=== PATIENT | female | born 1960 | race Caucasian/White ===

== ENCOUNTER → 2016-09-03 | Outpatient (CLI) | payer BC ==
[~2016-09-03] MED LIST: ALBUAER19 INH; LISI-787 PO; LSN/2025 PO; PRLSR20 PO; [UNRECOGNIZED DRUG - OTHER]
--- NOTE | 2016-09-03 07:55 | DIAGNOSTIC IMAGING REPORT ---
THYROID ULTRASOUND HISTORY: Thyroid enlargement R NON TOXIC SINGLE THYROID/PARATHYROID COMPARISON: None. FINDINGS: Right lobe: Maximum dimension 4.9 cm. 2 nodules are present. Mid pole nodule measures 2.3 x 1.5 cm. The lower pole measures 2.0 x 1.0 cm. Left lobe: measures maximum dimension of 3.5 cm. There is a 1.3 x 0.9 cm mid to lower pole left thyroid nodule with partial isthmus involvement. Isthmus: Multinodular thyroid IMPRESSION: Normal thyroid ultrasound. Electronically signed by: Srinath Rodrigues M.D. 09/03/2016 7:54 AM Dictated Date/Time: 09/03/2016 7:52 AM
== END | disposition home or self-care (01) ==
LOC: C.ULTR 07:03
PROVIDERS: ATTEND Family Medicine
DX: E04.2 Nontoxic multinodular goiter (principal)

== ENCOUNTER 2018-07-19 04:53 | Inpatient (IN) ==
--- NOTE | 2018-06-29 13:31 | Anesthesiology Consultation ---
Date of Service June 29, 2018 Assessment & Plan (1) Encounter for pre-operative examination: Plan: PCP clearance 06/26/2018: "I think she is a suitable candidate for total knee arthroplasty... She may proceed with the surgery... She is at a very low risk for any cardiovascular complications." Chart Review Chart Review: Acceptable Risk for Surgery and Patient seen in Pre Admission Testing Teaching & Discussion Instructed NPO after midnight before surgery, except medications with 15 cc of water. Medication instructions provided according to the PAT guidelines. History Surgery Operation Date: 07/19/18 08:50 Proposed Procedures p Left Total Knee Arthroplasty - Keo Casanova MD Height/Weight Height: 5 ft 4 in Weight: 113.8 kg Allergies Allergy/AdvReac Type Severity Reaction Status Date / Time metformin AdvReac Intermediate Diarrhea Verified 06/23/18 11:31 Medications Home Medications Medication Instructions Recorded Confirmed Last Taken albuterol sulfate 2 inh INHALATION QID PRN 06/23/18 06/23/18 Unknown ascorbic acid (vitamin C) [Vitamin 500 mg PO QAM 06/23/18 06/23/18 Unknown C] cholecalciferol (vitamin D3) 2,000 unit PO QAM 06/23/18 06/23/18 Unknown [Vitamin D3] lisinopril-hydrochlorothiazide 1 tab PO QAM 06/23/18 06/23/18 Unknown omeprazole 20 mg PO QAM 06/23/18 06/23/18 Unknown Past Medical History Medical History Anemia HX OF Aortic regurgitation Mild per 2016 echo GERD (gastroesophageal reflux disease) Hiatal hernia Hypertension Morbid obesity Osteoarthritis Reactive airway disease With cold air. Has albuterol inhaler, has not used x 2 years Thyroid nodule UNDER OBSERVATION-SEEMS TO BE SHRINKING Past Surgical History Surgical History History of arthroscopy R/L KNEES History of herniorrhaphy UMBILICAL/ABD LYMPH NODE BX-BENIGN History of tonsillectomy Past Anesthesia History No Hx of Anesthesia Complications and No Family Hx of Anesthesia Complications Knee scopes [facility] [place], no issues per records. History of PONV No Motion Sickness Screening History of Motion Sickness: No Social History Smoking Status: Never smoker Do You Dip or Chew Tobacco: No Hx Alcohol Use: Yes Alcohol type: beer, wine and hard liquor alcohol intake frequency: a few times a week Hx Substance Use: No substance use type: does not use Exercise / Class Metabolic Activity II 4-5 Yardwork/Stairs/Walk up hill (no CP or SOB with stairs) Review of Systems Pt denies any recent chest pain, shortness of breath, palpitations, cough, fever or URI. Physical Exam Vital Signs BP: 124/81 P: 94bpm SPO2: 97% RA T: 98.4 F R: 16 ENMT Mouth: + dental bridge (2) and + dental restorations (few crowns); no chipped teeth and no loose teeth Thyromental Distance: < 3.5 Finger Breadths (3) Mallampati Class: I Neck + short neck; neck extension not limited Respiratory normal respiratory effort Auscultation: lungs clear to auscultation bilaterally Cardiovascular Rate/Rhythm: regular rate and regular rhythm Heart Sounds: no murmur Vessels: no carotid bruit Extremities: no edema Testing Electrocardiogram Date: 06/29/18 Findings: + NSR @ (88) Chest X-Ray Date: 06/29/18 1. No active disease in the chest. 2. Prominent right paratracheal density has not significantly changed dating back to 2012. Laboratory Results 06/29/18 14:03 06/29/18 14:03 Blood Type A Positive 06/29/18 14:03 Antibody Screen NEGATIVE 06/29/18 14:03 PT 9.9 Seconds (9.0-12.0) 06/29/18 14:03 INR 1.0 (0.9-1.1) 06/29/18 14:03 APTT 25.4 Seconds (21.0-31.0) 06/29/18 14:03 Urine Color Yellow 06/29/18 Unknown Urine Appearance Cloudy (Clear) H 06/29/18 Unknown Urine pH 5.0 (4.5-7.5) 06/29/18 Unknown Ur Specific [place] 1.014 (1.000-1.030) 06/29/18 Unknown Urine Protein Negative (Negative) 06/29/18 Unknown Urine Glucose (UA) Negative (Negative) 06/29/18 Unknown Urine Ketones Negative (Negative) 06/29/18 Unknown Urine Nitrite Negative (Negative) 06/29/18 Unknown Ur Leukocyte Esterase Negative (Negative) 06/29/18 Unknown Urine WBC (Auto) 5-10 /hpf (0-5) H 06/29/18 Unknown Urine RBC (Auto) 0-4 /hpf (0-4) 06/29/18 Unknown U Hyaline Cast (Auto) 1-5 /lpf (0-5) 06/29/18 Unknown U Epithel Cells (Auto) >30 /lpf (0-5) H 06/29/18 Unknown Urine Bacteria (Auto) 1+ (Negative) H 06/29/18 Unknown
--- NOTE | 2018-06-29 13:33 | PAT Medication Instructions ---
Medication Instructions Date of Service June 29, 2018 Home Medications albuterol sulfate 2 inh INHALATION QID PRN ascorbic acid (vitamin C) 500 mg PO QAM cholecalciferol (vitamin D3) 2,000 unit PO QAM lisinopril-hydrochlorothiazide 1 tab PO QAM omeprazole 20 mg PO QAM DO NOT take the morning of surgery ascorbic acid (vitamin C) 500 mg PO QAM cholecalciferol (vitamin D3) 2,000 unit PO QAM lisinopril-hydrochlorothiazide 1 tab PO QAM Take morning of surgery With a small sip of water, OTHERWISE NOTHING TO EAT OR DRINK AFTER MIDNIGHT: albuterol sulfate 2 inh INHALATION QID PRN (if needed, and bring it with you into the hospital) omeprazole 20 mg PO QAM Take evening before surgery albuterol sulfate 2 inh INHALATION QID PRN (if needed) Other Notes If you have any questions please call us at [phone] or [phone] or [phone] or [phone]
--- NOTE | 2018-06-29 14:36 | XRay Report ---
TWO VIEW CHEST CLINICAL HISTORY: Preoperative examination. FINDINGS: PA and lateral chest radiographs are compared to study dated 11/05/2015 and 04/09/2013. The ca rdiomediastinal silhouette is unremarkable. Prominent right paratracheal density has not significantl y changed dating back to 2012. The lungs and pleural spaces are clear. There is no pneumothorax. The skeletal structures are osteopenic. Degenerative change and scoliosis are noted in the thoracic spine . The bony thorax appears intact. IMPRESSION: 1. No active disease in the chest. 2. Prominent right paratracheal density has not significantly changed dating back to 2012. Electronically signed by: Clemente Albert M.D. 06/29/2018 2:34 PM
[2018-06-29 15:02] LABS: Basophils # (auto) 0.04 K/uL (0-0.2); Basophils % (auto) 0.5 %; Eosinophils # (auto) 0.15 K/uL (0-0.5); Eosinophils % (auto) 1.9 %; Immature Granulocytes # (auto) 0.01 K/uL (0.00-0.02); Immature Granulocytes % (auto) 0.1 %; Lymphocytes # (auto) 3.11 K/uL (1.2-3.4); Lymphocytes % (auto) 38.5 %; Mean Corpuscular Hgb Conc 32.4 g/dL (32-36); Mean Corpuscular Volume 89.8 fL (80-100); Monocytes # (auto) 0.53 K/uL (0.11-0.59); Monocytes % (auto) 6.6 %; Neutrophils # (auto) 4.23 K/uL (1.4-6.5); Neutrophils % (auto) 52.4 %; Platelet Count 310 K/uL (130-400); RDW Standard Deviation 46.3 fL (36.4-46.3); Red Blood Count 4.12 M/uL (4.2-5.4); White Blood Count 8.07 K/uL (4.8-10.8)
[2018-06-29 15:04] LABS: Appearance Urine Cloudy (Clear); Bacteria Urine Automated 1+ (Negative); Bilirubin Urine Negative (Negative); Color Urine Yellow; Epithelial Cell Urine Auto >30 /lpf (0-5); Glucose Urine UA Negative (Negative); Ketones Urine Negative (Negative); Leukocyte Esterase Urine Negative (Negative); Nitrite Urine Negative (Negative); Protein Urine Negative (Negative); Specific Gravity Urine 1.014 (1.000-1.030); Urobilinogen Urine Negative (Negative)
[2018-06-29 15:11] LABS: Partial Thromboplastin Time 25.4 Seconds (21.0-31.0); Prothrombin Time 9.9 Seconds (9.0-12.0)
[2018-06-29 15:13] LABS: BUN Creatinine Ratio 21.3 (10-20); Calcium 9.6 mg/dl (8.5-10.1); Creatinine Clr Calc Pharmacy 72.9 ml/min; Est GFR (African American) 68.6; Est GFR (Non-African American) 59.2; Potassium 4.2 mmol/L (3.5-5.1)
--- NOTE | 2018-07-03 18:27 | History and Physical Report ---
DATE OF ADMISSION: 07/19/2018 CHIEF COMPLAINT: Left knee pain. HISTORY OF PRESENT ILLNESS: This 58-year-old white female presents to the office with complaints of left knee pain that has been longstanding. She has been receiving viscosupplementation injections as well as using oral NSAIDs and oral Tylenol without lasting improvement. She elects to proceed with total knee arthroplasty in hopes of alleviating her pain. Pain is worse with weightbearing. It is affecting her ADLs. She denies any numbness or tingling. No acute injury. She is no longer able to walk or bike for exercise. Preoperative imaging has been obtained. PAST MEDICAL HISTORY: Significant for obesity, hypertension, history of asthma, GERD, hiatal hernia, osteoarthritis, history of gallstones, and nonalcoholic fatty liver disease. PREVIOUS SURGERIES: Tonsillectomy with adenoidectomy, knee arthroscopy x2, lymph node biopsy, umbilical hernia repair. FAMILY HISTORY: Significant for non-Hodgkin's lymphoma in her mother. Father is living with hypertension. One sister also of Hodgkin's lymphoma. Two half-sisters and 2 half-brothers alive and well. SOCIAL HISTORY: The patient is employed. . No tobacco use, occasional ETOH use. ALLERGIES: KNOWN ALLERGY TO METFORMIN. NSAIDS CAUSE HEARTBURN. CURRENT MEDICATIONS: Advil 200 mg 3 tablets p.o. q. 8 hours p.r.n., hydrochlorothiazide/lisinopril 12.5 mg/20 mg p.o. daily, Prilosec OTC 20 mg p.o. daily, Tylenol 2 tablets p.o. q. 8 hours p.r.n., vitamin C daily, Vitamin D3 daily. REVIEW OF SYSTEMS: A total of 10 systems were reviewed with the patient and her significant only for above-stated conditions. PHYSICAL EXAMINATION: GENERAL: Well-developed, well-nourished, obese middle aged white female in no acute distress. Sitting in a chair. Alert and oriented. SKIN: Warm and dry with good turgor. No rashes or lesions. No ecchymosis or erythema. HEENT: Normocephalic, atraumatic. Eyes PERRLA, EOMI. Nares patent bilaterally without turbinate enlargement. Oropharynx without erythema or exudate. No lesions noted. Uvula midline. Oral mucosa moist. Fair dentition. Fillings and bridges are noted. HEART: RRR. No MGR. LUNGS: Clear to auscultation bilaterally. No crackles, rhonchi, or wheezing. Good air movement. ABDOMEN: Bowel sounds present x4, obese, soft, nontender. No organomegaly. No masses. MUSCULOSKELETAL: Left knee evaluation reveals no intraarticular effusion. She does get swelling at times. No venous stasis changes. Full terminal extension. Flexion to around 90 degrees. Some of this is limited by body habitus. She has focal discomfort with palpation over the medial joint line. There is also some peripatellar discomfort today. No lateral joint line discomfort with palpation. Stable collateral ligaments. No defect in the patellar tendon or quadriceps tendon. Strength is 5/5 with fair quad tone. Ambulatory with a slightly antalgic gait. NEUROLOGIC: Gross sensation is intact across both lower extremities by soft touch. Peripheral pulses are 2+. DATA: Radiographic imaging previously obtained shows end-stage DJD of the left knee with medial compartment disease and varus alignment. There is also patellofemoral disease. Periarticular osteophytes and subchondral sclerosis are present. IMPRESSION: Left knee end-stage degenerative joint disease. PLAN: Postoperative prescriptions for Percocet and Coumadin will be provided at discharge from the hospital. Anticipate discharge to home with outpatient services or home health services. She already has a walker. Physical therapy has already been established for 2 weeks postop. Preoperative lab work, EKG, and chest x-ray have been ordered. She already has obtained medical clearance from her PCP, Dr. Bernardino Ch.
[2018-07-19] MEDS ORDERED: TRANEXAMIC ACID 1,000 MG **IV Pre-op IV SCH (06:00)
[2018-07-19] MEDS ORDERED: CEFAZOLIN 3000MG 65 ML IV SCH (06:00)
[2018-07-19] MEDS ORDERED: ROPIVACAINE 0.5% HCL/PF 150 MG, BUPIVACAINE 0.5% MPF 30 ML, EPINEPHrine 0.15 MG, Ketoro... INFIL SCH (06:00)
[2018-07-19] MEDS ORDERED: LR 500ML BOLUS, THEN 15ML/HR IV SCH (06:00)
[2018-07-19] MEDS ORDERED: LR 60ML/HR IV SCH (06:00)
[2018-07-19] MEDS ORDERED: BUPIVACAINE 0.5 % 5 MG/1 ML PF 10ML VIAL ONE (06:14)
[2018-07-19] MEDS ORDERED: ROPIVACAINE 0.5% 5 MG/ML 30 ML VIAL ONE (06:14)
[2018-07-19] MEDS ORDERED: fentaNYL citrate 100 MCG/2 ML VIAL ONE (06:23)
[2018-07-19] MEDS ORDERED: MIDAZOLAM HCL 1 MG/ML 2ML VIAL ONE (06:23)
[2018-07-19] MEDS ORDERED: PROPOFOL IV EMULSION 10 MG/ML 20 ML VIAL IV ONE (06:24)
[2018-07-19] MEDS ORDERED: POVIDONE-IODINE OP SOLN 30 ML BTL ONE (06:27)
[2018-07-19] MEDS ORDERED: ONDANSETRON INJ 2 MG/ML 2 ML VIAL ONE (06:27)
[2018-07-19] MEDS ORDERED: LIDOCAINE HCL 2% 2 ML VIAL/AMP(20MG/ML) INFIL ONE (06:27)
[2018-07-19] MEDS ORDERED: ORTHO JOINT ANESTHETIC ONE (06:27)
--- NOTE | 2018-07-19 06:31 | History & Physical Bridge Note ---
Date of Service July 19, 2018 History & Physical Bridge Note I have examined the patient, reviewed the History & Physical and in the interval since the performance of the History & Physical I have noted the following changes of clinical significance:consent obtained. no changes noted
[2018-07-19] MEDS ORDERED: HYDROmorphone INJ 1 MG/ML SYRINGE IV PRN (06:41)
[2018-07-19] MEDS ORDERED: ePHEDrine sulfate 50 MG/ML AMP IV PRN (06:41)
[2018-07-19] MEDS ORDERED: KETOROLAC 30 MG/ML VIAL IV PRN ×2 (06:41→10:26)
[2018-07-19] MEDS ORDERED: PHENYLEPHRINE 100MCG/ML 5ML SYR IV PRN (06:41)
[2018-07-19] MEDS ORDERED: ATROPINE SULFATE 0.1 MG/ML 10ML SYR IV PRN (06:41)
[2018-07-19] MEDS ORDERED: ONDANSETRON INJ 2 MG/ML 2 ML VIAL IV PRN ×2 (06:41→10:26)
[2018-07-19] MEDS ORDERED: PHENYLEPHRINE HCL 10 MG/ML VIAL ONE (08:17)
--- NOTE | 2018-07-19 08:33 | Post Operative Brief Note ---
Immediate Post Op Note v1 Date of Surgery July 19, 2018 Pre & Post Diagnosis Operation Date: 07/19/18 07:00 Pre-Op Diagnosis: Left Knee Degenerative Joint Disease Post-Op Diagnosis: Left Knee Degenerative Joint Disease Procedure Operation Date: 07/19/18 07:00 Actual Procedures p Left Total Knee Arthroplasty, Cemented(Left) - Keo Casanova MD Surgeon Keo Casanova MD Planning Management It Special[facility] Estimated Blood Loss 25 Findings Consistent with Post-Op Diagnosis
--- NOTE | 2018-07-19 08:49 | Operative Report ---
Post Operative Report Pre & Post Diagnosis Operation Date: 07/19/18 07:00 Pre-Op Diagnosis: Left Knee Degenerative Joint Disease Post-Op Diagnosis: Left Knee Degenerative Joint Disease Procedure Operation Date: 07/19/18 07:00 Actual Procedures p Left Total Knee Arthroplasty, Cemented(Left) - Keo Casanova MD Surgeon FABI Casanova MD Copy Lathe Operator eduarda Estimated Blood Loss 25 Findings Consistent with Post-Op Diagnosis Specimens see operative report Drains none Complications none Disposition Accompanied Patient To Recovery: Yes Disposition: Recovery Room Indications This 58-year-old white female presented to the office with complaints of bilateral knee pain, left greater than right. She had tried conservative care measures including activity modification, oral anti-inflammatories, oral pain medication, and Viscosupplementation injections, without lasting relief. Pain was affecting her ADLs. She elected to proceed with surgical intervention after being educated about potential risks and outcomes. Preoperative imaging was obtained. Description of Procedure Patient was administered a spinal anesthetic and then taken to the operating room where she was given sedation. She was prepped and draped in the usual sterile fashion. Please see Dr. Casanova's operative report for specifics of the procedure. I was present for the entire case from initial patient positioning through final wound closure. Assistance was provided in tissue retraction, hemostasis, trial implant placement, final implant placement, and final wound closure. Patient was taken to the recovery room in satisfactory condition. I attest to the content of the Intraoperative Record and any orders documented therein. Any exceptions are noted below.
--- NOTE | 2018-07-19 09:02 | XRay Report ---
TWO VIEWS LEFT KNEE CLINICAL HISTORY: Postoperative examination. FINDINGS: AP and crosstable lateral portable views of the left knee are obtained. A left knee arthrop lasty is in near anatomic alignment. There has been undersurface remodeling of the patella. No acute fracture is seen. There are expected postoperative changes around the knee including skin clips, soft tissue edema, and subcutaneous gas. IMPRESSION: Expected postoperative changes status post left knee arthroplasty. No acute fracture is s een. Electronically signed by: Clemente Albert M.D. 07/19/2018 9:00 AM
--- NOTE | 2018-07-19 09:04 | Operative Report ---
DATE OF OPERATION: 07/19/2018 SURGEON: Dr. Casanova. BUSINESS APPLICATIONS DEVELOPER: Dr. Clemente. No resident or fellow available. PREOPERATIVE DIAGNOSES: Osteoarthritis with varus flexion deformity, left knee. POSTOPERATIVE DIAGNOSES: Osteoarthritis with varus flexion deformity, left knee. OPERATION PERFORMED: Cemented left total knee replacement. PERIOPERATIVE SITUATION: Medically cleared female with intractable knee pain, has relatively high BMI, but is cleared for surgery. Risks and consequences noted in the consent. She understands. DESCRIPTION OF PROCEDURE: The patient appropriately identified, site verified, consent verified. Antibiotics confirmed as being given. The left lower extremity was prepped and draped in usual routine fashion. The leg was then exsanguinated with rubber Esmarch bandage and tourniquet inflated to 300 mmHg for a total of 48 minutes. Midline exposure was utilized. Lengths based on size. Full thickness flaps raised. Parapatellar arthrotomy performed. Synovectomy completed. Large amount of osteophytes noted. The distal femur was then entered. The distal femur was then resected 14 mm after the cruciates were released. The tibia was then subluxated. Remaining menisci excised and the tibia resected 4 mm, the extension gap was excellent. The femur was then sized between 5 and 4, was measured 5 cut 4. There was no notching. Once the condylar and chamfer cuts made, the flexion gap was checked. It was excellent. The posterior capsule was then injected with 2 syringes full of the Orthomix. The box cut was then made and the trial fit well. Tibia was then subluxated and then broached and reamed to a size 3. The size 4 had a little bit of overhang and did not want to have any kind of soft tissue irritation, so we sized down. The size 4 trial with a 10 mm spacer revealed excellent stability in full extension, full flexion and mid range flexion. The patella was then sized to a 41, resection was made leaving 15 mm. Seating holes made. The trial tracked well. The wound was then all injected with the Orthomix and all the trial implants were removed. The wound irrigated with Betadine and Pulsavac and then the permanent cemented into position. After 12 minutes, the tourniquet deflated. Minor bleeding occurred. A 25 mL blood loss estimated. After 14 minutes, the knee was flexed. One minor small area of cement removal posteromedially. The wound was irrigated with Betadine and Pulsavac and then closed. After the permanent liner was seated, the knee reduced and the knee tracked well. This was closed with #2 Vicryl for the capsule layer, 2-0 Vicryl for subcutaneous layer and stainless steel clips for skin. Appropriate dressing applied and the patient transferred to the Recovery Room in satisfactory condition having tolerated the procedure well. SUMMARY OF IMPLANTS: Size 4 posterior cruciate substituting femur, size 3 tibial tray, size 4 spacer matching the femur posterior cruciate substituting 10 mm thick, oval dome 3 peg patella size 41. So 4 femur, 3 tibia, 41 patella and size four 10 mm thick tibial insert matching the femur posterior cruciate stabilized. Two bags of Palacos G cement. EBL 25 mL. Pathology pending on bone. DVT prophylaxis with Coumadin. I attest to the content of the Intraoperative Record and any orders documented therein. Any exception s are noted below.
--- NOTE | 2018-07-19 09:55 | Anesthesiology Progress Note ---
Date of Service July 19, 2018 Anesthesia Post Procedure Vital Signs Vital Signs: Temp Pulse Pulse Resp BP Pulse Ox 07/19/18 09:45 65 13 107/63 94 07/19/18 09:30 58 L 14 117/64 97 07/19/18 09:20 36.4 C L 70 17 120/75 97 07/19/18 09:10 66 14 122/67 97 07/19/18 09:00 70 17 110/72 96 07/19/18 08:50 65 13 125/59 L 97 07/19/18 08:40 36.9 C 78 18 111/66 97 07/19/18 05:25 36.9 C 75 18 140/90 98 Pain Intensity Left Knee: Pain Intensity: 0 Notes Mental Status: alert / awake / arousable Patient Amnestic to Procedure: Yes Nausea / Vomiting: adequately controlled Pain: adequately controlled Airway Patency, RR, SpO2: stable & adequate BP & HR: stable & adequate Hydration State: stable & adequate Neuraxial Anesthesia: was administered and sensory block is resolving Anesthetic Complications: no major complications apparent
[2018-07-19] MEDS ORDERED: DiphenhydrAMINE HCL 50 MG/ML VIAL IV PRN (10:26)
[2018-07-19] MEDS ORDERED: BISACODYL 10 MG SUPP PR PRN (10:26)
[2018-07-19] MEDS ORDERED: ALBUTEROL HFA 8 GM INHALER INH PRN (10:26)
[2018-07-19] MEDS ORDERED: ALUMINUM/MAGNESIUM SUSP 30 ML UDC PO PRN (10:26)
[2018-07-19] MEDS ORDERED: MAGNESIUM HYDROXIDE SUSP 30 ML UDC PO PRN (10:26)
[2018-07-19] MEDS ORDERED: HYDROmorphone INJ 0.5 MG/0.5 ML SYR IV PRN (10:26)
[2018-07-19] MEDS ORDERED: METOCLOPRAMIDE HCL INJ 5 MG/ML 2 ML VIAL IV PRN (10:26)
[2018-07-19] MEDS ORDERED: NALOXONE HCL 0.4 MG/1 ML VIAL/CARP IV PRN (10:26)
[2018-07-19] MEDS ORDERED: SODIUM CHLORIDE 0.9% 1000ML 1,000 ML IV SCH (11:00)
[2018-07-19] MEDS: LISINOPRIL/HCTZ 20/12.5MG 1 TAB TAB PO SCH (13:04)
[2018-07-19] MEDS: MULTIVITAMIN TAB PO SCH (13:04)
[2018-07-19] MEDS: PANTOprazole 40 MG TAB PO SCH (13:04)
[2018-07-19] MEDS: DOCUSATE SODIUM 100 MG CAP PO SCH ×2 (13:05→20:19)
[2018-07-19] MEDS: ACETAMINOPHEN 500 MG TAB PO SCH ×2 (13:05→21:14)
[2018-07-19] MEDS ORDERED: ORTHO WARFARIN NOMOGRAM SCH (14:00)
[2018-07-19] MEDS: CEFAZOLIN 2000MG 2,000 MG/15 ML SYR IV SCH ×2 (14:17→22:29)
--- NOTE | 2018-07-19 14:17 | Progress Note ---
DATE: 07/19/2018 POSTOPERATIVE CHECK PROGRESS NOTE The patient is doing well status post left total knee replacement. She denies shortness of breath, fever, chills, nausea, vomiting or headache. She has been up walking already. Eating, drinking. No nausea or vomiting. Vital signs are stable. She is afebrile. Neurovascular check; femoral sciatic nerve is normal. Wound dressing clean, dry and intact. Postop x-rays look excellent. ASSESSMENT: Doing well, postoperative care pathway for total knee replacement. Discharge tomorrow. Coumadin for deep venous thrombosis prophylaxis.
[2018-07-19] MEDS ORDERED: TRANEXAMIC ACID 1,000 MG in 0.9 % SODIUM CHLORIDE 100 ML IV SCH (14:30)
[2018-07-19] MEDS ORDERED: WARFARIN SOD 5 MG TAB PO ONE (16:00)
[2018-07-19] MEDS: OXYCODONE HCL IR 5 MG TAB (IMMEDIATE RELEASE) PO PRN (18:35)
[2018-07-19] MEDS ORDERED: SENNA 8.6 MG TAB PO SCH (21:00)
[2018-07-20] MEDS: ACETAMINOPHEN 500 MG TAB PO SCH (05:41)
[2018-07-20 06:27] LABS: Hematocrit (blood only) 34.7 % (37-47); Hemoglobin 11.5 g/dL (12.0-16.0); Mean Corpuscular Hgb Conc 33.1 g/dL (32-36); Mean Corpuscular Volume 89.2 fL (80-100); Mean Platelet Volume 10.1 fL (7.4-10.4); Platelet Count 271 K/uL (130-400); RDW Coefficient of Variation 13.8 % (11.5-14.5); RDW Standard Deviation 45.6 fL (36.4-46.3); Red Blood Count 3.89 M/uL (4.2-5.4); White Blood Count 12.96 K/uL (4.8-10.8)
[2018-07-20 06:39] LABS: INR 1.1 (0.9-1.1); Prothrombin Time 11.4 Seconds (9.0-12.0)
[2018-07-20 06:56] LABS: BUN Creatinine Ratio 17.7 (10-20); Calcium 8.7 mg/dl (8.5-10.1); Creatinine Clr Calc Pharmacy 57.8 ml/min; Est GFR (African American) 51.9; Est GFR (Non-African American) 44.8; Potassium 3.7 mmol/L (3.5-5.1)
--- NOTE | 2018-07-20 07:12 | Progress Note ---
DATE: 07/20/2018 SUBJECTIVE: Doing well status post left total knee replacement. The patient has been up ambulatory. She denies chest pain, shortness of breath, fever, chills, nausea, vomiting, or headache. She can do a straight leg raise. OBJECTIVE: Wound dressing clean and dry. Vital signs stable, afebrile. Hematocrit is stable in the 30s. INR is 1.1. ASSESSMENT: Doing well. Discharge today postop day #1 status post left total knee replacement. Discharge on 4 mg Coumadin.
[2018-07-20] MEDS ORDERED: dexAMETHasone 10 MG in SYRINGE 0 ML IV SCH (08:00)
--- NOTE | 2018-07-20 08:07 | Discharge Summary ---
DATE OF POTENTIAL DISCHARGE: 07/20/2018. CHIEF COMPLAINT: Left knee pain. HISTORY OF PRESENT ILLNESS: A 58-year-old female admitted for elective left total knee replacement. Hospital course has been uneventful. PAST MEDICAL HISTORY: Remarkable for obesity, hypertension, asthma, GERD, hiatal hernia, osteoarthritis, gallstones, nonalcoholic fatty liver disease. PAST SURGICAL HISTORY: Previous surgeries include tonsillectomy, adenoidectomy, knee arthroscopies, lymph node biopsy, umbilical hernia repair. FAMILY HISTORY: Remarkable for non-Hodgkin's lymphoma in her mother, father is living with hypertension, one sister also of Hodgkin's lymphoma. Two half-sisters and 2 half-brothers alive and well. SOCIAL HISTORY: Reveals that she is employed. . No tobacco or alcohol use. ALLERGIES: METFORMIN, NSAIDS CAUSE GI DISCOMFORT. PREADMISSION MEDICATIONS: Include Advil, hydrochlorothiazide, lisinopril, Prilosec, Tylenol, vitamin C, vitamin D. She will discontinue the Advil, use Coumadin to keep INR 1.8-2.2 and p.r.n. pain medication, see prescription. REVIEW OF SYSTEMS: Noncontributory. ASSESSMENT: Status post total knee replacement, doing well. Discharge to home tomorrow with home health.
[2018-07-20] MEDS: MULTIVITAMIN TAB PO SCH (09:04)
[2018-07-20] MEDS: LISINOPRIL/HCTZ 20/12.5MG 1 TAB TAB PO SCH (09:05)
[2018-07-20] MEDS: DOCUSATE SODIUM 100 MG CAP PO SCH (09:05)
[2018-07-20] MEDS: PANTOprazole 40 MG TAB PO SCH (09:05)
[2018-07-20] MEDS: OXYCODONE HCL IR 5 MG TAB (IMMEDIATE RELEASE) PO PRN (09:10)
--- NOTE | 2018-07-20 09:30 | Anesthesiology Progress Note ---
Date of Service July 20, 2018 Anesthesia Post Procedure Vital Signs Vital Signs: Temp Pulse Pulse Resp BP Pulse Ox 07/20/18 07:12 36.7 C 54 L 18 108/69 98 07/20/18 04:15 36.5 C 72 14 110/69 98 07/19/18 23:19 36.7 C 60 14 107/64 98 07/19/18 18:57 36.7 C 72 18 104/66 97 07/19/18 14:55 36.7 C 66 18 104/62 97 07/19/18 12:52 77 18 115/69 98 07/19/18 11:56 72 18 130/78 98 07/19/18 11:04 55 L 18 122/77 98 07/19/18 10:36 36.7 C 77 18 125/67 100 07/19/18 10:32 56 L 18 120/77 97 07/19/18 10:00 36.9 C 63 18 125/79 96 07/19/18 09:45 65 13 107/63 94 07/19/18 09:30 58 L 14 117/64 97 Pain Intensity Left Knee: Pain Intensity: 0 Notes Mental Status: alert / awake / arousable Nausea / Vomiting: adequately controlled Pain: adequately controlled Airway Patency, RR, SpO2: stable & adequate BP & HR: stable & adequate Hydration State: stable & adequate Neuraxial Anesthesia: was administered and sensory block resolved Anesthetic Complications: no major complications apparent and Pt Satisfied with anesthetic care
[2018-07-20] MEDS ORDERED: WARFARIN SOD 5 MG TAB PO ONE (10:30)
== END 2018-07-20 12:12 | disposition home health service (06) | DRG 470 ==
LOC: ASU 04:53 → 3E 08:48

== ENCOUNTER 2022-06-30 06:04 | Observation (INO) ==
--- NOTE | 2022-06-14 11:11 | PAT Medication Instructions ---
Medication Instructions Date of Service June 14, 2022 Home Medications albuterol sulfate 90 mcg/actuation breath activated powder inhaler 2 inh inhalation QID PRN Wheezing ascorbic acid (vitamin C) 500 mg chewable tablet (Vitamin C) 500 mg PO QAM cholecalciferol (vitamin D3) 50 mcg (2,000 unit) capsule (Vitamin D3) 2,000 unit PO QAM omeprazole 20 mg tablet,delayed release 10 mg PO QAM hydrochlorothiazide 12.5 mg tablet 25 mg PO QAM ibuprofen 200 mg capsule 400 mg PO QID PRN Pain ASK your surgeon for instructions ibuprofen 200 mg capsule 400 mg PO QID PRN Pain DO NOT take the morning of surgery ascorbic acid (vitamin C) 500 mg chewable tablet (Vitamin C) 500 mg PO QAM cholecalciferol (vitamin D3) 50 mcg (2,000 unit) capsule (Vitamin D3) 2,000 unit PO QAM hydrochlorothiazide 12.5 mg tablet 25 mg PO QAM Take morning of surgery With a small sip of water, OTHERWISE NOTHING TO EAT OR DRINK AFTER MIDNIGHT: albuterol sulfate 90 mcg/actuation breath activated powder inhaler 2 inh inhalation QID PRN Wheezing (use if needed; please bring rescue inhaler with you to hospital day of surgery if possible) omeprazole 20 mg tablet,delayed release 10 mg PO QAM Take evening before surgery albuterol sulfate 90 mcg/actuation breath activated powder inhaler 2 inh inhalation QID PRN Wheezing (if needed) Other Notes If you have any questions please call us at [phone] or [phone] or [phone] or [phone]
--- NOTE | 2022-06-18 10:49 | Anesthesiology Consultation ---
Date of Service June 18, 2022 Assessment & Plan (1) Encounter for pre-operative examination: - COVID screening: Per assessment on 06/18: No known COVID-19 positive contacts or current COVID-19 related symptoms. Travel screen negative. Patient vaccinated. At surgeon discretion if preop Covid testing being done. - S/P Left TKA (07/19/18): SAB at L3-4 (x1 attempt) + PNB at [facility] - Outpatient joint assessment: Pt currently scheduled for inpatient pathway. If surgeon requests review for outpatient joint pathway, patient is an acceptable candidate for outpatient joint program from anesthesia standpoint. - Patient acceptable risk for surgery pending surgeon-ordered PCP preop evaluation (Dr. Ch, appt 06/23). Chart Review Chart Review: Patient seen in Pre Admission Testing Teaching & Discussion Pre-Anesthesia Teaching/Discussion Notes: Instructed NPO after midnight before surgery,except medications with 15 cc of water. Medication instructions provided according to the PAT guidelines. History Surgery Operation Date: 06/30/22 07:00 Proposed Procedures p Right Total Knee Arthroplasty - Keo Casanova MD Height/Weight Height: 5 ft 4 in Weight: 109.2 kg Allergies Allergy/AdvReac Type Severity Reaction Status Date / Time metformin AdvReac Intermediate Diarrhea Verified 06/11/22 13:49 Medications Home Medications Medication Instructions Recorded Confirmed Last Taken albuterol sulfate 90 mcg/actuation 2 inh inhalation QID PRN Wheezing 06/23/18 06/11/22 Unknown breath activated powder inhaler ascorbic acid (vitamin C) 500 mg 500 mg PO QAM 06/23/18 06/11/22 01/27/19 chewable tablet (Vitamin C) cholecalciferol (vitamin D3) 50 2,000 unit PO QAM 06/23/18 06/11/22 01/28/19 mcg (2,000 unit) capsule (Vitamin D3) omeprazole 20 mg tablet,delayed 10 mg PO QAM 06/23/18 06/11/22 01/28/19 release hydrochlorothiazide 12.5 mg tablet 25 mg PO QAM 01/12/19 06/11/22 01/28/19 ibuprofen 200 mg capsule 400 mg PO QID PRN Pain 01/12/19 06/11/22 01/15/19 Past Medical History Medical History GERD (gastroesophageal reflux disease) Controlled Hiatal hernia Hypertension Morbid obesity Osteoarthritis Reactive airway disease Temporomandibular joint disorder Right side clicking, no locking Exercise / Class Metabolic Activity II 4-5 Yardwork/Stairs/Walk up hill Past Family History Family History Other No family history of adverse response to anesthesia Past Surgical History Surgical History History of arthroscopy R/L KNEE History of herniorrhaphy UMBILICAL/ABD LYMPH NODE BX-BENIGN History of tonsillectomy History of total knee replacement Left TKA (07/19/18): SAB at L3-4 (x1 attempt) + PNB at [facility] Past Anesthesia History No Hx of Anesthesia Complications and No Family Hx of Anesthesia Complications History of PONV No Hx of PONV and No Hx of Motion Sickness Social History Smoking Status: Never smoker Do You Dip or Chew Tobacco: No Hx Alcohol Use: Yes Alcohol type: beer, wine and hard liquor alcohol intake frequency: a few times a week Hx Substance Use: No substance use type: does not use Review of Systems Patient denies chest pain, shortness of breath, dyspnea on exertion, fever, chills, cough, wheezing, palpitations. Physical Exam Vital Signs VITALS BP 113/75 P 74 TEMP 98.3 SP02 98%RA RESP 18 PHYSICAL Full cervical extension range of motion. Full TMJ range of motion. TMD 3 finger breaths Mallampati Score 1 Dentition: intact, + bridges (sides/molars) Lungs: clear throughout to auscultation Cardiac: regular rate and rhythm, no murmurs noted Spine: normal Carotid arteries: negative bruit Extremities: no edema Lab Results Anesthesia Preop Results Results Anesthesia Widget: WBC 7.05 K/ul (4.8-10.8) 06/18/22 Hgb 12.0 g/dl (12.0-16.0) 06/18/22 Hct 35.7 % (34.1-44.9) 06/18/22 Plt 303 K/uL (130-400) 06/18/22 Na 140 mmol/L (136-145) 06/18/22 K 3.9 mmol/L (3.5-5.1) 06/18/22 Cl 104 mmol/L (98-107) 06/18/22 CO2 28 mmol/L (21-32) 06/18/22 BUN 27 mg/dl (6-23) H 06/18/22 Creat 1.22 mg/dl (0.6-1.2) H 06/18/22 Glucose Level 99 mg/dl (70-99(Fasting)) 06/18/22 PT 10.3 Seconds (9.0-12.0) 06/18/22 PTT 25.9 Seconds (21.0-31.0) 06/18/22 INR 1.0 (0.9-1.1) 06/18/22 Urine Color Yellow 06/18/22 Urine Appearance Clear (Clear) 06/18/22 Urine pH 5.0 (4.5-7.5) 06/18/22 Urine Specific [place] 1.018 (1.000-1.030) 06/18/22 Urine Protein Negative (Negative) 06/18/22 Urine Glucose (UA) Negative (Negative) 06/18/22 Urine Ketones Negative (Negative) 06/18/22 Urine Blood Negative (Negative) 06/18/22 Urine Nitrite Negative (Negative) 06/18/22 Urine Bilirubin Negative (Negative) 06/18/22 Urine Urobilinogen Negative (Negative) 06/18/22 Urine Leukocyte Esterase Negative (Negative) 06/18/22 Blood Type A Positive 06/18/22 Antibody Screen NEGATIVE 06/18/22 Testing Electrocardiogram Date: 06/18/22 Findings: + NSR @ (69) Chest X-Ray Date: 06/18/22 FINDINGS: PA and lateral chest radiographs are compared to study dated 06/07. The cardiomediastinal silhouette is unremarkable. The lungs and pleural spaces are clear. There is no pneumothorax. The bony thorax appears intact. Degenerative change is noted throughout the thoracic spine. IMPRESSION: No active disease in the chest. COVID-19 Risk Screen Screening Information COVID-19 Screen Date: 06/18/22 Exposure 21 Days Family/Household +COVID Last 21 Days: No Exposure 10 Days Any COVID Exposure Last 10 Days: No Symptoms Last 10 Days Experienced COVID Sx Last 10 Days: No + COVID 0-90 Days COVID + in Last 0-90 Days: No
[~2022-06-30 06:04] MED LIST changes: -ALBUAER19 INH; -LISI-787 PO; +LR 500ML BOLUS, THEN 15ML/HR IV SCH; +LR 60ML/HR IV SCH; -LSN/2025 PO; -PRLSR20 PO; +ROPIVACAINE 0.5% HCL/PF 150 MG, BUPIVACAINE 0.75% MPF 20 ML, EPINEPHrine 0.15 MG, Ketor... INFIL SCH; +TRANEXAMIC ACID 1,000 MG **IV Pre-op IV SCH; -[UNRECOGNIZED DRUG - OTHER]; +ceFAZolin 2000MG 2,000 MG/15 ML SYR IV SCH
--- NOTE | 2022-06-30 06:29 | History & Physical Bridge Note ---
Date of Service June 30, 2022 History & Physical Bridge Note I have examined the patient, reviewed the History & Physical and in the interval since the performance of the History & Physical I have noted the following changes of clinical significance: no changes noted
[2022-06-30] MEDS ORDERED: ROPIVACAINE 0.5% 5 MG/ML 30 ML VIAL ONE (06:32)
[2022-06-30] MEDS ORDERED: EPINEPHrine INJ 1 MG/ML AMP ONE (06:32)
[2022-06-30] MEDS ORDERED: BUPIVACAINE 0.5 % 5 MG/1 ML PF 10ML VIAL ONE (06:32)
[2022-06-30] MEDS ORDERED: MIDAZOLAM HCL 1 MG/ML 2ML VIAL ONE ×2 (07:19→09:08)
[2022-06-30] MEDS ORDERED: ONDANSETRON INJ 2 MG/ML 2 ML VIAL ONE (08:30)
[2022-06-30] MEDS ORDERED: PROPOFOL IV EMULSION 10 MG/ML 20 ML VIAL IV ONE ×2 (08:30→10:12)
[2022-06-30] MEDS ORDERED: ORTHO JOINT ANESTHETIC ONE (08:42)
[2022-06-30] MEDS ORDERED: KETAMINE 50 MG/5 ML SYRINGE ONE (09:15)
[2022-06-30] MEDS ORDERED: PHENYLEPHRINE 100MCG/ML 5ML SYR ONE (09:37)
[2022-06-30] MEDS ORDERED: KETOROLAC 30 MG/ML VIAL ONE (10:19)
--- NOTE | 2022-06-30 11:20 | Operative Report (OR) ---
DATE OF PROCEDURE: 06/30/2022. SURGEON: Keo Casanova MD. HANGING FLAGS DECORATOR: Amalia. SECOND HANGING FLAGS DECORATOR: Jesus Clemente PA-C. PREOPERATIVE DIAGNOSIS: Osteoarthritis, right knee, with varus flexion deformity. POSTOPERATIVE DIAGNOSIS: Osteoarthritis, right knee, with varus flexion deformity. OPERATION PERFORMED: Cemented right total knee replacement. SUMMARY OF IMPLANTS: J and J rotating platform size 3 femur, posterior cruciate substituting size 3 mobile bearing tray, size 41 patella, size 3 x 10 mm insert, posterior cruciate substituting, 2 bags of Palacos G cement. Pathology pending on bone. ESTIMATED BLOOD LOSS: 50 mL CRYSTALLOID: Per anesthesia. DVT prophylaxis per protocol. PERIOPERATIVE SITUATION: Medically cleared female with intractable knee pain, had a total knee done on the opposite side, understands the risks and consequences, wished to proceed with surgical treatment on the right. DESCRIPTION OF PROCEDURE: The patient was appropriately identified, site verified, consent verified. Antibiotics were confirmed as being given. The right lower extremity was prepped and draped in the usual routine fashion. A midline exposure was utilized. Parapatellar arthrotomy performed. Synovectomy completed, osteophytes resected. Distal femur entered. Cruciates resected. Distal femur cut 14 mm, proximal tibia 4 mm, the extension gap was excellent. The femur was sized between a 4 and a 3, was measured 4, cut 3. No notching. The box cut was checked, it was excellent. The box cut was then made and the size 3 fit well. The tibia was broached and reamed to a size 3. The 10 spacer allowed full flexion and extension with good tracking of the patella and good mid range stability. The patella was then resected leaving 15 mm and a 41 button seated after drill holes made. It tracked well. The Orthomix was then injected all about the knee. All the trial implants were then removed. The wound was irrigated with Betadine and Pulsavac, and then the permanent cemented into position, tibia, femur, and patella in that order. At 12 minutes, the tourniquet deflated. Minor bleeding points controlled with electrocautery. Trial spacer was removed. The knee was irrigated one final time with Betadine and Pulsavac, and then the permanent liner seated. The knee reduced and closed at 40 degrees of flexion with #2 Vicryl, 2-0 Vicryl and stainless steel clips. Appropriate dressing applied. The patient was transferred to recovery room in satisfactory condition, having tolerated the procedure well.Tourniquet time 55 minutes/275mm mercury of pressure. Job ID: [id number] [facility]
[2022-06-30] MEDS ORDERED: ePHEDrine sulfate 50 MG/ML AMP IV PRN (11:22)
[2022-06-30] MEDS ORDERED: ATROPINE SULFATE 0.1 MG/ML 10ML SYR IV PRN (11:22)
--- NOTE | 2022-06-30 12:03 | XRay Report ---
RIGHT KNEE 2 VIEWS History: Right total knee arthroplasty. Degenerative arthritis. Postop. FINDINGS: The patient is status post a right total knee arthroplasty. The hardware is intact. No frac ture or dislocation. Skin leo are in place. IMPRESSION: Right total knee arthroplasty. No evidence for hardware complication. ACT 112: Negative or not required by law. Electronically signed by: Clinton Hogan M.D. 06/30/2022 10:59 AM
[2022-06-30] MEDS ORDERED: METOCLOPRAMIDE HCL INJ 5 MG/ML 2 ML VIAL IV PRN (12:11)
[2022-06-30] MEDS ORDERED: NALOXONE HCL 0.4 MG/1 ML VIAL/CARP IV PRN (12:11)
[2022-06-30] MEDS ORDERED: ONDANSETRON INJ 2 MG/ML 2 ML VIAL IV PRN (12:11)
[2022-06-30] MEDS ORDERED: MAGNESIUM HYDROXIDE SUSP 30 ML UDC PO PRN (12:11)
[2022-06-30] MEDS ORDERED: bisacodyL 10 MG SUPP PR PRN (12:11)
[2022-06-30] MEDS ORDERED: SODIUM CHLORIDE 0.9% 1000ML 1,000 ML IV SCH (12:15)
--- NOTE | 2022-06-30 12:36 | Post Operative Brief Note ---
Immediate Post Op Note v1 Date of Surgery June 30, 2022 Pre & Post Diagnosis Operation Date: 06/30/22 08:50 Pre-Op Diagnosis: Right Knee Degenerative Joint Disease Post-Op Diagnosis: Right Knee Degenerative Joint Disease I identified the patient and participated in the time-out.: Yes Procedure Operation Date: 06/30/22 08:50 Actual Procedures p Right Total Knee Arthroplasty(Right) - Keo Casanova MD Surgeon Keo Casanova MD Health Unit Clerk Amalia/Chyna Estimated Blood Loss 50 Findings Consistent with Post-Op Diagnosis
--- NOTE | 2022-06-30 12:36 | Post Operative Brief Note ---
Immediate Post Op Note v1 Date of Surgery June 30, 2022 Pre & Post Diagnosis Operation Date: 06/30/22 08:50 Pre-Op Diagnosis: Right Knee Degenerative Joint Disease Post-Op Diagnosis: Right Knee Degenerative Joint Disease I identified the patient and participated in the time-out.: Yes Procedure Operation Date: 06/30/22 08:50 Actual Procedures p Right Total Knee Arthroplasty(Right) - Keo Casanova MD Surgeon Keo Casanova MD Dog Beautician Amalia/Chyna Estimated Blood Loss 50 Findings Consistent with Post-Op Diagnosis
--- NOTE | 2022-06-30 12:36 | Anesthesiology Progress Note ---
Date of Service June 30, 2022 Anesthesia Post Procedure Vital Signs Vital Signs: Temp Pulse Pulse Resp BP BP Pulse Ox 06/30/22 11:15 36.3 C L 75 15 146/98 H 96 06/30/22 11:05 74 16 144/96 H 99 06/30/22 10:55 76 13 125/77 100 06/30/22 10:45 85 19 112/60 99 06/30/22 10:39 36.7 C 96 H 19 112/60 98 06/30/22 06:47 36.6 C 82 20 148/78 H 98 O2 Del Method O2 Flow Rate 06/30/22 11:15 Room Air 06/30/22 11:05 Room Air 06/30/22 10:55 Room Air 06/30/22 10:45 Oxymask 4 06/30/22 10:39 Oxymask 4 06/30/22 06:47 Room Air Transfer of Care Handoff Completed per policy Notes Mental Status: alert / awake / arousable Patient Amnestic to Procedure: Yes Nausea / Vomiting: adequately controlled Pain: adequately controlled Airway Patency, RR, SpO2: stable & adequate BP & HR: stable & adequate Hydration State: stable & adequate Neuraxial Anesthesia: was administered and sensory block is resolving Anesthetic Complications: no major complications apparent
--- NOTE | 2022-06-30 12:37 | Operative Report ---
Post Operative Report Pre & Post Diagnosis Operation Date: 06/30/22 08:50 Pre-Op Diagnosis: Right Knee Degenerative Joint Disease Post-Op Diagnosis: Right Knee Degenerative Joint Disease I identified the patient and participated in the time-out.: Yes Procedure Operation Date: 06/30/22 08:50 Actual Procedures p Right Total Knee Arthroplasty(Right) - Keo Casanova MD Surgeon Jesus Clemente, RANDOLPH Combustion Engineer Gm Estimated Blood Loss 50 Findings Consistent with Post-Op Diagnosis See operative report Specimens See operative report Drains None Complications none Disposition Accompanied Patient To Recovery: Yes Indications This 62-year-old female presented to the office with complaints of persisting right knee pain. She had tried conservative care measures without improvement. She elected to proceed with surgical intervention after being educated about potential risks and outcomes. Preoperative imaging was obtained. Description of Procedure Patient was administered a spinal anesthetic and then taken to the operating room where she was given sedation. She was prepped and draped in the usual sterile fashion. Please see Dr. Casanova's operative report for specifics of the procedure. I was present for the entire case from initial patient positioning through final wound closure. Assistance was provided in tissue retraction, hemostasis, trial implant placement, final implant placement, and final wound closure. Patient was taken to the recovery room in satisfactory condition. I attest to the content of the Intraoperative Record and any orders documented therein. Any exceptions are noted below.
[2022-06-30] MEDS ORDERED: oxyCODONE HCL IR 5 MG TAB (IMMEDIATE RELEASE) PO PRN (13:16)
[2022-06-30] MEDS ORDERED: VANCOMYCIN CONSULT ACTIVE PRN (13:16)
[2022-06-30] MEDS ORDERED: HYDROmorphone INJ 0.5 MG/0.5 ML SYR IV PRN (13:16)
[2022-06-30] MEDS ORDERED: VANCOMYCIN HCL 1,750 MG in SODIUM CHLORIDE 0.9% 500 ML IV SCH (14:00)
[2022-06-30] MEDS ORDERED: ORTHO WARFARIN NOMOGRAM SCH (14:15)
[2022-06-30] MEDS: ACETAMINOPHEN 500 MG TAB PO SCH ×2 (14:27→20:32)
[2022-06-30] MEDS ORDERED: WARFARIN SOD 5 MG TAB PO SCH (16:00)
--- NOTE | 2022-06-30 17:02 | Discharge Summary (DS) ---
HISTORY OF PRESENT ILLNESS: Admitted on 06/30/2022, 23-hour admission for right total knee replacement. To date hospital course has been uneventful. She is eating, drinking, voiding. She denies any chest pain, shortness of breath, fever, chills, nausea, vomiting or headache. PAST MEDICAL HISTORY: Remarkable for obesity, hypertension, asthma, GERD, hiatal hernia, osteoarthritis, gallstones, nonalcoholic fatty liver disease. PAST SURGICAL HISTORY: Remarkable for tonsillectomy, adenoidectomy, knee arthroscopies, total knee arthroplasty in 2019, umbilical hernia repair, lymph node biopsy. FAMILY HISTORY: Remarkable for non-Hodgkin's lymphoma in her mother. Father is alive, history of hypertension. One sister of Hodgkin's lymphoma. Two half sisters and two half brothers alive and well. SOCIAL HISTORY: Reveals she is . She is employed. No alcohol or tobacco use. ALLERGIES: METFORMIN, NSAIDs, AMLODIPINE AND IRBESARTAN. PREADMISSION MEDICATIONS: Include albuterol inhaler p.r.n., vitamin C, baclofen, vitamin D, hydrochlorothiazide, topical hydrocortisone cream p.r.n., omeprazole. REVIEW OF SYSTEMS: As noted above. Postoperative x-rays look excellent. ASSESSMENT: Status post right total knee replacement. Continue with care pathway. The patient is requesting non-coumadin anticoagulation. We will use Eliquis, to start that 24 hours postop. Did not start tonight. Job ID: [id number] [facility]
[2022-06-30] MEDS: KETOROLAC 30 MG/ML VIAL IV SCH (17:46)
[2022-06-30] MEDS: ceFAZolin 2000MG 2,000 MG/15 ML SYR IV SCH (17:46)
[2022-06-30] MEDS ORDERED: TRANEXAMIC ACID / 0.7% NACL 1,000 MG/100 ML BAG IV SCH (18:00)
[2022-06-30] MEDS: DOCUSATE SODIUM 100 MG CAP PO SCH (20:32)
[2022-06-30] MEDS ORDERED: SENNA 8.6 MG TAB PO SCH (21:00)
[2022-07-01] MEDS: KETOROLAC 30 MG/ML VIAL IV SCH ×2 (00:24→06:19)
[2022-07-01] MEDS: ceFAZolin 2000MG 2,000 MG/15 ML SYR IV SCH (00:24)
[2022-07-01] MEDS: ACETAMINOPHEN 500 MG TAB PO SCH (06:19)
--- NOTE | 2022-07-01 06:55 | Progress Notes ---
DATE OF SERVICE: 06/30/2022 SUBJECTIVE: Postoperative day #1, status post right total knee replacement. The patient is sitting up in the chair. She is awake, alert, comfortable. She states she only has pain when she tries to h old herself up. She is placed in a knee immobilizer. It makes her feel more secure. She states she is doing her knee flexion exercises, which were emphasized. OBJECTIVE: Neurovascular check, femoral sciatic nerve is normal. Wound dressing clean, dry and inta ct. LABORATORY DATA: A.m. labs are pending. I did cancel the PT/INR since she is not wanting to use Cou madin and is preferring Eliquis. ASSESSMENT AND PLAN: Doing well status post right total knee replacement. Discharged home today aft er PT and OT. Discontinue warfarin and warfarin series labs. We will start her on Eliquis in aftern oon today that will be 24 hours postop. She will be on mainly prevention dose, not the full therapeu tic dose. Follow up in 2 weeks for staple removal. Job ID: [id number]
[2022-07-01 07:10] LABS: BUN Creatinine Ratio 15.8 (10-20); Calcium 9.1 mg/dl (8.5-10.1); Creatinine Clr Calc Pharmacy 32.7 ml/min; Est GFR (African American) 27.7 ml/min; Est GFR (Non-African American) 23.9 ml/min; Potassium 4.5 mmol/L (3.5-5.1)
[2022-07-01] MEDS: DOCUSATE SODIUM 100 MG CAP PO SCH (07:24)
[2022-07-01] MEDS ORDERED: dexAMETHasone 10 MG in SYRINGE 0 ML IV SCH (08:00)
[2022-07-01] MEDS ORDERED: PANTOprazole 40 MG TAB PO SCH (09:00)
[2022-07-01] MEDS ORDERED: MULTIVITAMIN TAB PO SCH (09:00)
[2022-07-01] MEDS ORDERED: hydroCHLOROthiazide 25 MG TAB PO SCH (09:00)
--- NOTE | 2022-07-01 09:00 | Orthopedic Progress Note ---
Date of Service July 01, 2022 Assessment & Plan (1) S/P total knee replacement using cement: Plan: Patient's dressing was changed today by me. Her Eugene stocking was applied. She will leave this in place until Tuesday, at which time it may be changed. She will keep the wound dry. Anticipate discharge to home today after PT/OT. She will start formal physical therapy on Tuesday on an outpatient basis. Prescription for Eliquis 2.5 mg twice daily was sent to her pharmacy. First dose will be given today before discharge. Written discharge instructions were provided. Follow-up in the office in 2 weeks as scheduled for staple removal. Admission and Anticipated Discharge Date Admission Date: June 30, 2022 Subjective Patient is seen in her room this morning. She has no complaints. She is currently sitting up and finishing breakfast. She denies any chest pain, shortness of breath, nausea, vomiting, or abdominal pain. She has minimal knee pain at this point. She states it has been controlled with her pain pills. She did not sleep well last night secondary to interruptions. She is looking forward to going home today. Review of Systems Review of Systems: unchanged from yesterday Physical Exam Physical Exam: General: Well-developed, well-nourished, middle-aged female, in no acute distress. Sitting in a chair. Alert and oriented. Conversive. Skin: Warm and dry with good turgor. Postsurgical dressing is in place on the right leg. Upon removal, there is scant dried blood on the inner dressings. Nothing is soaked. Her leo are intact. Wound edges well approximated. No erythema or warmth. No ecchymosis. Expected postoperative edema. Musculoskeletal: Patient has intact motor function of the hip, knee, and ankle. She is able to perform a straight leg raise. She has nearly full terminal extension. Flexion to around 60 degrees without difficulty. Neurologic: Gross sensation is intact across the right leg by soft touch. Peripheral pulses are 2+. Results & Data ([facility]) Vital Signs (Past 12 Hours) Vital Signs Temp Pulse Resp BP Pulse Ox O2 Del Method 07/01/22 07:02 36.4 C L 65 18 101/62 98 Room Air 07/01/22 04:02 36.7 C 61 18 94/60 L 96 Room Air 06/30/22 22:36 36.7 C 75 18 91/54 L 97 Room Air Laboratory Results CBC obtained today shows a white count of 11.65. H&H of 11.1 and 33.2. PRP shows normal sodium, potassium, and chloride. BUN is elevated at 34. Creatinine is elevated at 2.15. This is higher than her baseline. Patient states she does feel dry. Glucose normal at 121.
[2022-07-01] MEDS ORDERED: APIXABAN 2.5 MG TAB PO SCH (09:15)
[2022-07-01 09:27] LABS: Hematocrit (blood only) 33.2 % (37.0-47.0); Hemoglobin 11.1 g/dl (12.0-16.0); Mean Corpuscular Hemoglobin 29.7 pg (25.0-34.0); Mean Corpuscular Hgb Conc 33.4 g/dL (32.0-36.0); Mean Corpuscular Volume 88.8 fL (80.0-100.0); Platelet Count 258 K/uL (130-400); RDW Standard Deviation 42.4 fL (36.4-46.3); Red Blood Count 3.74 M/uL (4.20-5.40); White Blood Count 11.65 K/ul (4.8-10.8)
--- NOTE | 2022-07-01 09:34 | Progress Notes ---
SUBJECTIVE: Postop check status post right total knee replacement. The patient is doing well. She has been up out of bed. She has been up to the bathroom and voided, eating and drinking. Denies nighat st pain, shortness of breath, fever, chills, nausea, vomiting or headache. OBJECTIVE: VITAL SIGNS: Stable. She is afebrile. Neurovascular check, femoral sciatic nerve is normal. Wound dressing clean, dry and intact. Postop x-rays look excellent. ASSESSMENT: Doing well. Continue with care pathway. She is requesting not to use Coumadin and to u se another medication. We will discontinue the INR, PT followup and discontinue Coumadin. We will st art Carlos or equivalent tomorrow or when she is 24 hours postop. Job ID: [id number]
[2022-07-01] MEDS ORDERED: ORTHO WARFARIN NOMOGRAM SCH (14:00)
== END 2022-07-01 12:49 | disposition home or self-care (01) ==
LOC: ASU 06:04 → 3E 06:04
DX: M25.761 Osteophyte, right knee; J45.909 Unspecified asthma, uncomplicated; K21.9 Gastro-esophageal reflux disease without esophagitis; K44.9 Diaphragmatic hernia without obstruction or gangrene; E66.01 Morbid (severe) obesity due to excess calories; Z79.1 Long term (current) use of non-steroidal anti-inflammatories (NSAID); Z88.8 Allergy status to other drugs, medicaments and biological substances; I10 Essential (primary) hypertension; Z68.41 Body mass index [BMI] 40.0-44.9, adult; K76.0 Fatty (change of) liver, not elsewhere classified; M17.11 Unilateral primary osteoarthritis, right knee; M21.161 Varus deformity, not elsewhere classified, right knee; Z79.899 Other long term (current) drug therapy; Z88.6 Allergy status to analgesic agent; Z96.652 Presence of left artificial knee joint